=== PATIENT | female | born 1995 | race Two or more races ===

== ENCOUNTER 2019-08-29 08:50 | Observation (INO) | payer MEDICAID ==
[2019-08-29 10:06] LABS: Basophils # (auto) 0 uL; Basophils % (auto) 0.6 % (0.0-2.0); Eosinophils # (auto) 0.1 uL; Eosinophils % (auto) 1.1 % (0.0-7.0); Hematocrit 32.1 % (36.0-46.0); Hemoglobin 10.8 g/dL (12.2-16.2); Lymphocytes # (auto) 1.8 uL; Lymphocytes % (auto) 22.1 % (10.0-50.0); Mean Corpuscular Hemoglobin 28.4 pg (28.0-32.0); Mean Corpuscular Hgb Conc. 33.5 g/dL (32.0-36.0); Mean Corpuscular Volume 84.8 fL (80.0-100.0); Monocytes # (auto) 0.6 uL; Monocytes % (auto) 7.2 % (0.0-12.0); Neutrophils # (auto) 5.7 uL; Nucleated Red Blood Cells % 0.1 %; Platelet Count (auto) 215 10^3/uL (140-450); Red Blood Cells 3.79 10^6/uL (4.0-5.20); Red Cell Distribution Width 13.9 % (11.8-14.3); White Blood Cell 8.2 10^3/uL (4.4-10.8)
[2019-08-29 10:22] LABS: INR 0.92 (0.9-1.15); Partial Thromboplastin Time 26.6 sec (23.64-32.05)
[2019-08-29 10:25] LABS: Albumin 2.9 g/dL (3.4-5.0); Calcium 8.8 mg/dL (8.5-10.1); Potassium 3.8 mmol/L (3.5-5.1); Uric Acid 2.7 mg/dL (2.6-6.0)
[2019-08-29 10:28] LABS: BUN/Creatinine Ratio 14.6; Bilirubin, Total 0.2 mg/dL (0.2-1.0)
[2019-08-29 10:54] LABS: Urine Bacteria MOD /hpf (None Seen); Urine Blood Negative /uL (Negative); Urine Mucus FEW (None Seen); Urine Specific Gravity 1.011 (1.001-1.035); Urine WBC 28 /hpf (0 - 5)
[2019-08-29] MEDS ORDERED: PREN-96 PO (11:53)
== END 2019-08-29 11:45 | disposition home or self-care (01) | DRG 566 ==
LOC: LDRP 08:50
PROVIDERS: ADMIT Obstetrics & Gynecology; ATTEND Obstetrics & Gynecology
DX: O26.613 Liver and biliary tract disorders in pregnancy, third trimester (principal); K83.1 Obstruction of bile duct; Z3A.35 35 weeks gestation of pregnancy
CPT/HCPCS: 36415; 59025; 80053; 81001; 81002; 84550; 85025; 85610; 85730; G0378

== ENCOUNTER 2019-09-02 07:50 | Observation (INO) | payer MEDICAID ==
[~2019-09-02 07:50] MED LIST: PREN-96 PO
== END 2019-09-02 08:35 | disposition home or self-care (01) | DRG 566 ==
LOC: LDRP 07:50
PROVIDERS: ADMIT Obstetrics & Gynecology; ATTEND Obstetrics & Gynecology
DX: O26.613 Liver and biliary tract disorders in pregnancy, third trimester (principal); K83.1 Obstruction of bile duct; Z3A.36 36 weeks gestation of pregnancy
CPT/HCPCS: 59025; 81002; G0378

== ENCOUNTER 2019-09-03 11:10 | Outpatient (CLI) | payer MEDICAID ==
[2019-09-04] MEDS ORDERED: URSO300C9 PO (11:43)
[2019-09-16] MEDS ORDERED: FERR-20 PO (14:35)
== END 2019-09-03 12:06 | disposition home or self-care (01) ==
LOC: OBSVTOIN 11:10 → LDRP 11:10 → INTOOBSV 11:10 → UNDOADMOB 11:10 → OB 11:10 → UNDODISOB 12:06 → EDSTATUS 10-10 11:46
PROVIDERS: ATTEND Specialist
DX: O26.613 Liver and biliary tract disorders in pregnancy, third trimester (principal); K83.1 Obstruction of bile duct; Z3A.36 36 weeks gestation of pregnancy
CPT/HCPCS: 76818; G0378

== ENCOUNTER 2019-09-04 10:50 | Observation (INO) | payer MEDICAID ==
[2019-09-04] MEDS ORDERED: URSO300C9 PO (11:43)
== END 2019-09-04 12:35 | disposition home or self-care (01) | DRG 566 ==
LOC: LDRP 10:50
PROVIDERS: ADMIT Obstetrics & Gynecology; ATTEND Obstetrics & Gynecology
DX: O26.613 Liver and biliary tract disorders in pregnancy, third trimester (principal); K83.1 Obstruction of bile duct; Z3A.36 36 weeks gestation of pregnancy
CPT/HCPCS: 59025; 76818; 81002; G0378

== ENCOUNTER 2019-09-07 14:07 | Observation (INO) | payer MEDICAID ==
[~2019-09-07 14:07] MED LIST changes: +URSO300C9 PO
== END 2019-09-07 16:15 | disposition home or self-care (01) | DRG 566 ==
LOC: LDRP 14:07
PROVIDERS: ADMIT Specialist; ATTEND Specialist
DX: O26.613 Liver and biliary tract disorders in pregnancy, third trimester (principal); Z3A.36 36 weeks gestation of pregnancy
CPT/HCPCS: 59025; 76818; 81002; G0378

== ENCOUNTER 2019-09-13 11:35 | Observation (INO) | payer MEDICAID | END 2019-09-13 12:25 | disposition home or self-care (01) | DRG 566 | LOC: LDRP 11:35 | PROVIDERS: ADMIT Obstetrics & Gynecology; ATTEND Obstetrics & Gynecology | DX: O26.613 Liver and biliary tract disorders in pregnancy, third trimester (principal); K83.1 Obstruction of bile duct; Z3A.37 37 weeks gestation of pregnancy | CPT/HCPCS: 59025; 76818; 81002; G0378 ==

== ENCOUNTER 2024-07-27 19:30 | Observation (INO) | payer MEDICAID ==
[~2024-07-27] VITALS: Ht 157.5 cm; Wt 73.9 kg
[~2024-07-27 19:30] MED LIST changes: +FERR325T24 PO; -URSO300C9 PO
--- NOTE | 2024-07-27 20:41 | DVH ---
LIMITED SURVEY CLINICAL HISTORY: Fall on 07/26/24 COMPARISON: No recent prior studies are available for comparison. TECHNIQUE: Real-time grayscale, color flow and M-mode imaging of the gravid uterus is performed. FINDINGS: Single living intrauterine gestation. heart rate 152 beats per minute. Cephalic presentation. The placenta is anterior. Cervix measures approximately 4.3 cm in length and appears closed. No defin ite evidence of placental abruption/ previa at this time. Average ultrasound age 30 weeks 1 day. Estimated due date 10/04/2024. measurements (cm): BPD 7.5, HC 27.5, AC 25.7, FL 5.8. 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 IMPRESSION: Single living intrauterine gestation as above.
--- NOTE | 2024-07-27 22:45 | DVHDS2 ---
Physician Discharge Progress N Final Diagnosis: IUP at 29w 0d s/p Fall (> 24 hours) Reactive NST Other Interventions Other Interventions S: 28yo G2,1001 with EDC of 10/12/24 presents to L&D with report os falling in the shower yesterday at around 3pm. Did not go to hospital due to lack of transportation Reports pain from around the pubic area to her left side especially with certain movements. Pain level was 9/10 yesterday but has decreased to about 7/10 after Epsom salt bath Reports normal movements was more vigorous yesterday, no leakage of fluid or vaginal bleeding. main reason for visit is to see if baby is okay States she reports care in with Dr Mason Per pt pain is only with certain movement She reports h/o cholestasis of with G#1 Current : 1hr glucose 161mg/dL, yet to do 3hr GTT O: A&O x3 Appears uncomfortable No CVA tenderness Abdomen palpate soft FHR baseline 140bpm with accelerations. no deceleration, no contraction noted POC Glucose: 89mg/dL OB US: no abruption, or previa, NIHARIKA 16.1cm and cervical length 4.3cm POC UA Dipstick: Leukocytes, Nitrite, blood, negative, protein trace, pH 6 SG 1.020 A: s/p Fall (>24hrs) reactive NST P: Discharge patient home. Analgesics PRN (Acetaminophen offered, but pt states she has at home; prefers to take it when she gets home.) Increase fluid intake FMC, 3rd trimester emergency signs and symptoms reviewed; to ER if any or decreased movement. Advised to f/u with her OB doctor within 3days Condition on Discharge: Stable Disposition: Home Discharge Instructions: Diet: Regular Activity: No Restrictions, As Tolerated Activity comment: Balance activities with rest periods. Follow Up/Referral: Please follow up with your primary OB doctor as soon as possible Medications: None Follow Up Care: Discharge Statement: "Patient was advised to return to the ER or call 911 if any headaches, dizziness, shortness of breath, chest pain, abdominal pain, bleeding, fevers, or worsening of medical condition. Patient was counseled about treatment plan, medications, possible side effects, patientverbalized understanding. All questions were answered to the best of my ability. This discharge took greater then 30 minutes in planning, reviewing documentation, counseling the patient, and discussing with other team members." [facility] Jul 27, 2024 22:45
== END 2024-07-27 21:10 | disposition home or self-care (01) ==
LOC: LDRP 19:30
PROVIDERS: ADMIT Obstetrics & Gynecology; ATTEND Obstetrics & Gynecology
DX: O26.893 Other specified pregnancy related conditions, third trimester (principal); R10.9 Unspecified abdominal pain; O26.649 Intrahepatic cholestasis of pregnancy, unspecified trimester; K83.1 Obstruction of bile duct; Z3A.29 29 weeks gestation of pregnancy; Z59.82 Transportation insecurity; Z79.899 Other long term (current) drug therapy; W18.2XXA Fall in (into) shower or empty bathtub, initial encounter; Y93.E1 Activity, personal bathing and showering; Y92.89 Other specified places as the place of occurrence of the external cause; Y99.8 Other external cause status
CPT/HCPCS: 59025; 81002; 82948; 94760; G0378